=== PATIENT | female | born 1965 | race Caucasian/White ===

== ENCOUNTER 2022-12-13 18:55 | Emergency (ER) | payer MEDICARE, SELFPAY ==
[2022-12-13 19:11] VITALS: BP 134/78; PULSE 74; RESP 16; TEMP 37.3; O2SAT 99
--- NOTE | 2022-12-13 19:11 | ED.FALL ---
HPI - Fall General Chief Complaint: Fall Stated Complaint: right groin pain previous fall,hit head Time Seen by Provider: 12/13/22 19:11 Source: patient Mode of arrival: ambulatory Limitations: no limitations History of Present Illness HPI Narrative: Lizette is a 57-year-old female patient presenting to clinic today with complaints of right groin pain times 10 days. She reports that the groin pain is gradually getting worse. She has been taking ibuprofen to help alleviate the pain. States that she fell ago and possibly strained her right groin. She denies landing on her bottom-hit her at at the time but denies any neurological concerns at this time. Related Data Home Medications Medication Instructions Recorded Confirmed citalopram 20 mg tablet 20 mg PO DAILY 12/13/22 12/13/22 Allergies Allergy/AdvReac Type Severity Reaction Status Date / Time No Known Allergies Allergy Mild Verified 03/06/14 09:39 Review of Systems Review of Systems: Pertinent positives per HPI. Patient denies any fever, chills, rash, headache, visual changes, dizziness, cough, runny nose, sore throat, shortness of breath, chest pain, palpitations, nausea, vomiting, diarrhea, constipation, abdominal pain, or any urinary issues. PMFSH Comments At the time of my signature, I reviewed and agree with the nursing past medical, surgical, social, and family history. There is no relevant family history pertinent to the patient complaint. Exam Narrative: General: Well-developed, well nourished, in no apparent distress Head: Normocephalic, atraumatic Eyes: Pupils equally round and reactive to light bilaterally, EOM intact, sclera and conjunctive clear, no discharge, lids normal Ears: TMs intact and clear, ear canals clear, no drainage, grossly hearing normal. Nose: Nares patent, no discharge, no inflammation, no sinus tenderness. Mouth: Oropharynx without lesions or masses, good dentition, MMM. Tongue midline, even rise and fall of uvula Neck: Supple, trachea midline, no enlargement of anterior or posterior cervical nodes, no thyroid masses or goiter palpable. Cardio: Regular rate and rhythm, s1 and s2 normal, no murmur appreciated. Resp: Clear to auscultation bilaterally anteriorly and posteriorly, no rhonchi, rales, wheezing or rubs Musculoskeletal: No deformity,tender to palpation over the right groin, nontender to palpation over the pelvis or the right hip, grossly normal range of motion, pain is worse with going from a sitting to a standing position and as well as walking, muscle strength strong and equal, peripheral pulse strong, no edema, no cyanosis, normal gait and station Neuro: Alert and oriented x4 with normal speech, no focal deficits, cranial nerves I through XII intact, muscle strength 5 out of 5, sensation intact bilaterally, negative Romberg test Course Course Emergency Course: Portions of this record may have been created with voice recognition software. Level of Care: Express Care Visit Vital Signs Vital signs: Vital signs reviewed MDM - Fall MDM Narrative Medical decision making narrative: At the time of visit patient is resting comfortably on the exam table. I suspect patient has a right groin strain. Supportive measures were discussed and patient voiced understanding the discharge instructions. Will send in prescription for naproxen. At the patient follow-up with her PCP in 1 week if symptoms persist for further evaluation Differential Diagnosis Differential diagnosis: Likely other (Groin strain, hip fracture, pelvic fracture, and inguinal hernia) Discharge Plan Discharge Clinical Impression: Strain of muscle of right groin region Patient Disposition: Home, Self-Care Condition: Stable Instructions: Antibiotic Form, Groin Strain (ED) Additional Instructions: I suspect you have a right groin muscle strain Rest, may apply heat to the affected area Try stretching groin muscle 2-3 times da
== END 2022-12-13 19:26 | disposition home or self-care (01) ==
PROVIDERS: Emergency Provider Nurse Practitioner Family; PCP Family Medicine
DX: S39.011A Strain of muscle, fascia and tendon of abdomen, initial encounter (principal); Z79.899 Other long term (current) drug therapy; X58.XXXA Exposure to other specified factors, initial encounter
CPT/HCPCS: 99213; G0463

== ENCOUNTER 2023-02-07 18:44 | Inpatient (IN) | payer MEDICARE, SELFPAY ==
[2023-02-07] VITALS (15 sets, daily range): BP systolic 144–175; BP diastolic 86–107; PULSE 80–93; RESP 13–26; TEMP 36.9–37.1; O2SAT 81–100; BMI 31.6
--- NOTE | ~2023-02-07 | CT_ITS ---
EXAMINATION: CT brain wo con DATE: 02/07/2023 20:17 INDICATION: altered mental status . TECHNIQUE: Computed tomography (CT) of the head was performed without intravenous contrast. The mA wa s adjusted according to patient size. Iterative reconstruction technique was employed. The dose-lengt h product was 1210.67 mGy-cm. COMPARISON: None. FINDINGS: Motion artifact which persisted in repeated imaging attempts. No acute intracranial hemorrhage or extra-axial fluid collection. No hydrocephalus, mass, or herniation. No acute ischemic infarct. Unremarkable dural venous sinus attenuation. No acute osseous abnormality. Aerated secretions in the sphenoid sinus, mild mucosal thickening in the ethmoid air cells and left m axillary sinus, the remaining aerated spaces are clear. IMPRESSION: Mildly motion limited examination. No acute intracranial process. Reviewed, dictated and finalized at location K. O GAMES STORYWRITER
--- NOTE | ~2023-02-07 | CT_ITS ---
EXAMINATION: CT abdomen pelvis wo con DATE: 02/07/2023 22:23 INDICATION: abdominal pain, elevated LFT TECHNIQUE: Computed tomography (CT) of the abdomen and pelvis was performed without intravenous contr ast. Automated exposure control and iterative reconstruction technique were employed. The dose-length product was 1325.96 mGy-cm. COMPARISON: None. FINDINGS: Lower thorax: Left basilar atelectasis/scar. Small focus of subsegmental dependent consolidation with discoid atelectasis in the right lung base. Pacing wires. Liver: Normal. Biliary/Gallbladder: Gallbladder is absent. No bile duct dilation. Pancreas: No mass or duct dilation. Spleen: Normal. Adrenals:No mass. Right adrenal calcification, possibly from old hematoma. Kidneys: Left inferior pole calculi measuring up to 9 mm. Renal pelvis and right inferior pole calcul i measuring up to 13 mm. Mild bilateral caliectasis, pelviectasis, and ureterectasis, without obstruc ting stone or mass detected. GI tract: No small or large bowel dilation. Appendix not confidently visualized. Large volume of colo jessica stool. Mesentery/Peritoneum: No ascites, mass, or free air. Retroperitoneum: No mass. Pelvis: Urinary bladder is decompressed by a Castro catheter. Gas within the bladder lumen. Absent rachele matthew. Soft Tissues: Soft tissues and body wall unremarkable. Bones: No acute osseous finding. IMPRESSION: Small focus of subsegmental right basilar consolidation may represent atelectasis, infection, or aspi ration. Bilateral nonobstructive nephrolithiasis. Mild bilateral hydronephrosis without obstructing stone or mass. Correlate with urinalysis and clinic al symptoms of cystitis/ascending infection. Large volume of colonic stool may reflect a degree of constipation in the appropriate clinical contex t. Reviewed, dictated and finalized at location K. AIN FITTER IMPRESSION: Small focus of subsegmental right basilar consolidation may represent atelectas is, infection, or aspiration. Bilateral nonobstructive nephrolithiasis. Mild bilateral hydronephrosis without obstructing stone or mass. Correlate with urinalysis and clinical symptoms of cystitis/ascending infection. Large volume of colonic stool may reflect a degree of constipation in the appro priate clinical context.
--- NOTE | ~2023-02-07 | XR_ITS ---
EXAMINATION: XR chest 1V Exam Date/Time: 02/07/2023 20:10 INSERT MOLDING OPERATOR HISTORY: overdose Comparison: 09/05/2012. RESULT: Lines, tubes, and devices: Left chest pacer with intact leads. Cholecystectomy clips. Lungs and pleura: Low volumes with crowding, otherwise clear. Cardiomediastinal silhouette: Stable. Other: No acute osseous or upper abdominal finding. IMPRESSION: No acute cardiopulmonary process. Reviewed, dictated and finalized at location K. RT MOLDING OPERATOR
--- NOTE | ~2023-02-07 | US_ITS ---
EXAMINATION: US abdomen limited DATE: 02/08/2023 10:48 INDICATION: Hepatitis. TECHNIQUE: Multiple grayscale and Doppler ultrasound images of the abdomen were obtained. COMPARISON: CT abdomen and pelvis 02/07/2023 FINDINGS: The visualized portions of the head and body of the pancreas are normal. There is diffuse h epatic steatosis. There is normal flow in main portal vein. The gallbladder is absent. The common ron t is normal and measures 4 mm. The left, middle, and right hepatic veins are patent. There is decreas ed phasicity of the hepatic vein waveforms. IMPRESSION: 1. Diffuse hepatic steatosis. 2. Decreased phasicity of the hepatic vein waveforms, which is nonspecific and may be seen with liver disease or heart disease. Reviewed, dictated and finalized at location A. RER LANDSCAPE
--- NOTE | 2023-02-07 19:12 | ECG_ITS ---
Measurements Intervals Lyman Rate: 87 P: 62 IN: 195 QRS: -53 QRSD: 106 T: 8 QT: 345 QTc: 416 Interpretive Statements SINUS RHYTHM LEFT ANTERIOR FASCICULAR BLOCK POOR R WAVE PROGRESSION, ANTERIOR LEADS BORDERLINE ST-T WAVE ABNORMALITY- DIFFUSE LEADS BASELINE ARTIFACT- I, II, III, AVR, AVL, AVF, V1-V6 ABNORMAL ECG NO PREVIOUS ECG AVAILABLE FOR COMPARISON Electronically Signed On 02-08-2023 6:16:41 TICKER INSTALLER by Ming Cole D.O.
[2023-02-07] MEDS: ONDANSETRON INJ 4 MG/2 ML VIAL IV PUSH (19:20)
[2023-02-07] MEDS: SODIUM CHLORIDE 0.9% IV 1,000 ML 999 ML IV CONT ×2 (19:20→20:41)
--- NOTE | 2023-02-07 19:27 | PC.NURSE ---
arm board applied to RIGHT arm @1926 because pt is unable to keep arm straight. maggie domínguez O2 monitor applied for an accurate spO2 sat.
[2023-02-07 19:51] LABS: Basophils Absolute Auto 0.1 K/mm3 (0.0-0.1); Basophils Percent Auto 0.3 % (0.2-1.2); Eosinophils Absolute Auto 0.1 K/mm3 (0-0.3); Eosinophils Percent Auto 0.7 % (0-4.4); Hematocrit 43.9 % (37.0-47.0); Hemoglobin 15.6 g/dL (12.0-15.0); Immature Granulocyte Absolute 0.29 K/mm3 (0.00-0.031); Immature Granulocyte Percent A 1.5 % (0-0.5); Lymphocytes Absolute Auto 0.99 K/mm3 (0.9-3.2); Lymphocytes Percent Auto 5.1 % (18.3-44.2); Mean Corpuscular HGB Conc 35.5 g/dl (32-36); Mean Corpuscular Hemoglobin 32.2 pg (26-34); Mean Corpuscular Volume 90.5 fl (80-100); Mean Platelet Volume 11.5 fl (7.4-10.4); Monocytes Absolute Auto 0.9 K/mm3 (0.1-0.6); Monocytes Percent Auto 4.7 % (2.6-8.5); Neutrophils Absolute Auto 16.9 K/mm3 (1.3-6.7); Neutrophils Percent Auto 87.7 % (45.5-73.1); Nucleated Red Blood Cells Perc 0.1 % (0.0-0.2); Platelet Count Result 305 k/mm3 (150-375); Red Blood Count 4.85 M/mm3 (4.2-5.4); Red Cell Distribution Width 13.8 % (11.5-14.5); White Blood Count 19.3 K/mm3 (4.5-10.0)
[2023-02-07 19:58] LABS: Partial Thromboplastin Time 24.8 SECONDS (22.3-36.8)
[2023-02-07 20:03] LABS: Acetaminophen < 10 ug/mL (10-30); Ethanol < 10 mg/dL (<10); Salicylate < 1.0 mg/dL (2-20)
[2023-02-07 20:04] LABS: Lactic Acid Reflex 2.9 mmol/L (0.7-2.0)
[2023-02-07 20:05] LABS: INR 1.4; Prothrombin Time 18.3 Seconds (11.1-14.7)
--- NOTE | 2023-02-07 20:08 | ED.GENADULT ---
HPI - General Adult General Chief complaint: Overdose Stated complaint: OVERDOSE, AMS, LETHARGIC Time Seen by Provider: 02/07/23 19:03 History of Present Illness HPI narrative: Is a 7-year-old female who presents to emergency department with chief complaint of overdose. Per the patient's family she was found sleeping with some vomit nearby her with a bottle that was filled on the ien there were 3 tablets left in the bottle is unsure whether the patient was trying to harm herself or accidentally took too much. The patient is not able to provide history but will open her eyes to stimuli Related Data Home Medications Medication Instructions Recorded Confirmed citalopram 20 mg tablet 20 mg PO DAILY 12/13/22 02/07/23 hydrochlorothiazide 12.5 mg tablet 12.5 mg PO DAILY 02/07/23 02/07/23 zolpidem 5 mg tablet 5 mg PO HS PRN Insomnia 02/07/23 02/07/23 Allergies Allergy/AdvReac Type Severity Reaction Status Date / Time No Known Allergies Allergy Mild Verified 03/06/14 09:39 Review of Systems Review of Systems: A 10 system review of systems was completed on the patient and is negative except for what is stated in the HPI. Nursing and ancillary documentation was reviewed. [facility] Past Medical History Medical History (Updated 02/08/23 @ 01:10 by Carlye Olson DO) Anxiety Essential hypertension Insomnia POTS (postural orthostatic tachycardia syndrome) Surgical History Surgical History (Updated 02/07/23 @ 23:34 by Carley Olson DO) History of total hysterectomy with bilateral salpingo-oophorectomy (BSO) Status post biventricular cardiac pacemaker insertion Family History Family History Other Unknown family medical history Social History Social History (Updated 02/07/23 @ 23:31 by Carley Olson DO) Social History: The patient lives with her . Her is not at bedside as he suffers from social anxiety disorder. The patient has a distant history of prescription opiate abuse over 20 years ago (before 1999). She is a lifelong nonsmoker and does not drink alcohol. (social history provided by the patient's son, Abdifatah) Code status: Full code Surrogate decision maker: Smoking status: Unknown if ever smoked Alcohol intake: former Substance use: former Spiritual care concerns: No Course Vital Signs Vital signs: Vital Signs Pulse Rate 87 02/07/23 18:41 Respiratory Rate 20 02/07/23 18:41 Blood Pressure 175/98 H 02/07/23 18:41 Pulse Oximetry 100 02/07/23 18:41 Oxygen Delivery Room Air 02/07/23 18:41 Temperature 37.2 C 02/08/23 06:00 Pulse Rate 73 02/08/23 06:00 Respiratory Rate 18 02/08/23 06:00 Blood Pressure 107/81 02/08/23 06:00 Pulse Oximetry 94 02/08/23 06:00 Oxygen Delivery High Flow Nasal Cannula 02/08/23 04:00 Oxygen Flow Rate 3 02/08/23 04:00 Medical Decision Making Vital Signs Vital Signs: Vital Signs Pulse Rate 87 02/07/23 18:41 Respiratory Rate 20 02/07/23 18:41 Blood Pressure 175/98 H 02/07/23 18:41 Pulse Oximetry 100 02/07/23 18:41 Oxygen Delivery Room Air 02/07/23 18:41 Temperature 37.2 C 02/08/23 06:00 Pulse Rate 73 02/08/23 06:00 Respiratory Rate 18 02/08/23 06:00 Blood Pressure 107/81 02/08/23 06:00 Pulse Oximetry 94 02/08/23 06:00 Oxygen Delivery High Flow Nasal Cannula 02/08/23 04:00 Oxygen Flow Rate 3 02/08/23 04:00 Lab Data 02/08/23 06:31 02/07/23 19:36 Labs: Lab Results 02/07/23 02/07/23 02/07/23 Range/Units 19:36 19:36 19:36 WBC 19.3 H (4.5-10.0) K/mm3 RBC 4.85 (4.2-5.4) M/mm3 Hgb 15.6 H (12.0-15.0) g/dL Hct 43.9 (37.0-47.0) % MCV 90.5 (80-100) fl MCH 32.2 (26-34) pg MCHC 35.5 (32-36) g/dl RDW 13.8 (11.5-14.5) % Plt Count 305 (150-375) k/mm3 MPV 11.5 H (7.4-10.4) fl Laine
[2023-02-07 20:10] LABS: Appearance Urine Cloudy (Clear); Bacteria Urine None Seen /hpf; Bilirubin Urine Negative (Negative); Blood Urine 3+ (Negative); Color Urine Dark Yellow (Yellow); Glucose Urine UA Negative (Negative); Ketones Urine Negative (Negative); Leukocyte Esterase Ur Negative LEU/UL (Negative); Nitrate Urine Negative (Negative); Non Pathogenic Casts 0-2; Protein Urine 1+ mg/dL (Negative); Specific Grav Ur 1.016 (1.001-1.035); Squamous Epithelial Cell Urine None seen /hpf (Few); WBC Urine 0-5 /hpf; pH Urine 5.5 (5.0-9.0)
[2023-02-07 20:16] LABS: Albumin Level 4.2 g/dL (3.5-5.1); Alkaline Phosphatase 280 U/L (38-126); Anion Gap 17 mmol/L (8-16); Bilirubin,Total 1.7 mg/dL (0.2-1.3); Blood Urea Nitrogen 76 mg/dL (7-17); Carbon Dioxide 23 mmol/L (22-30); Chloride 101 mmol/L (98-107); Estimated CRCL calculation 21 ml/min; Estimated Glomerular Filt Rate 17; Glucose 136 mg/dL (65-110); Magnesium 2.2 mg/dL (1.6-2.3); Phosphorus 2.5 mg/dL (2.5-4.5); Potassium 3.2 mmol/L (3.4-5.0); Sodium 141 mmol/L (137-145)
[2023-02-07 20:17] LABS: Add Urine Microscopic? YES
[2023-02-07 20:20] LABS: Creatine Kinase 2280 U/L (30-135)
--- NOTE | 2023-02-07 20:21 | PC.NURSE ---
pt recieved 1L of NS in ems.
[2023-02-07 20:22] LABS: Amphetamine Screen Urine Negative (Negative); Barbiturate Screen Urine Negative (Negative); Benzodiazepines Screen Urine Negative (Negative); Cannabinoid Screen Urine Negative (Negative); Cocaine Screen Urine Negative (Negative); Methadone Screen Urine Negative (Negative); Opiate Screen Urine Negative (Negative); Phencyclidine Screen Urine Negative (Negative)
[2023-02-07 20:31] LABS: Alanine Aminotransferase 3412 U/L (6-35); Aspartate Amino Transferase 2276 U/L (14-36)
[2023-02-07 20:32] LABS: Thyroid Stimulating Hormone 0.854 uIU/mL (0.465-4.680)
--- NOTE | 2023-02-07 20:33 | PC.NURSE ---
notified poison control and they recommend admission, iv fluids, and trending the CPK every 6-8 hours. notified.
--- NOTE | 2023-02-07 20:44 | PM.IMHP ---
H&P: HPI History of Present Illness Date/Time: 02/07/23 20:44 Chief Complaint: Suspected overdose Narrative: 57-year-old female with a past medical history of obesity, anxiety postural orthostatic tachycardic syndrome status post pacemaker placement, chronic lower extremity edema and hypertension who presented to the ER from home after being found in bed with an almost empty bottle of Ambien. Information was obtained from the patient's son was at bedside, the patient's [id number] over the phone and the patient's over the phone. The patient has definite last known normal was on the evening of the . The patient's son is uncertain if the patient had actually got up and was up or talking to her through the day. But he reports that the patient has been having significant difficulty with insomnia and anxiety. Patient was started on Ambien in December. The patient had taken a couple doses of Ambien and had noticed that she was doing sleep behaviors such as sleep eating and walking. The patient had verbalized to the [id number] that she was concerned that if she took the Ambien that she to sleep she may inadvertently into taking extra doses because she did not realize that she had taken the previous dose. Patient had never verbalized intention to hurt herself to the family members. And today the patient was found in her bed at home with a bottle of Ambien. She was found with emesis around her mouth and she had been incontinent of bladder. The patient was responsive only to painful stimuli. She had a prescription of Ambien 5 mg filled on the . There were only 3 tablets left in the bottle. It sounds like the patient was not taking the Ambien on every day basis because of her concern for her unintentional sleep behaviors. It is uncertain how many pills of Ambien the patient may taken. Patient will open her eyes to noxious stimuli. She does moan and moves about but does not localize the pain. She occasionally will open her eyes to her name. The patient had vomited in the field it was assumed that this was due to the drug ingestion. But on exam patient seemed to have some abdominal tenderness. Subsequently patient was sent for stat CT of the abdomen and pelvis. CT demonstrated right lower lobe pneumonia and bilateral hydronephrosis with decompressed bladder due to Castro. Patient did have 2 L urinary retention in the ER with relief after Castro catheter placement. Hydronephrosis likely due to this. However the patient's bladder was already decompressed at the time of my evaluation. No other evidence of acute abdominal process. So emesis likely was due to drug ingestion. The family does provide history but they also on not the best historians. EMS documentation was not available for my review. The patient had never been evaluated at this facility before. External medication history was reviewed from electronic sources. Review of Systems Review of Systems: ROS unobtainable: Yes unobtainable due to mental status PMFSH Past Medical History Medical History (Updated 02/08/23 @ 01:10 by Carley Olson DO) Anxiety Essential hypertension Insomnia POTS (postural orthostatic tachycardia syndrome) Surgical History Surgical History (Updated 02/07/23 @ 23:34 by Carley Olson DO) History of total hysterectomy with bilateral salpingo-oophorectomy (BSO) Status post biventricular cardiac pacemaker insertion Family History Family History (Updated 02/07/23 @ 23:29 by Carley Olson DO) Other Unknown family medical history Social History Social History (Updated 02/07/23 @ 23:31 by Carley Olson DO) Social History: The patient lives with her . Her is not at bedside as he suffers from social anxiety disorder. The patient has a distant history of prescription opiate abuse over 20 years ago (before 1999). She is a lifelong nonsmoker and does not drink alcohol. (social history provided by
[2023-02-07 21:29] LABS: Alveolar/Arterial O2 Gradient 226.9 mmHg; Base Excess ABG -2.7 mEq/l (+/-2.0); Fractional Inspired Oxygen 60 %; HCO3 ABG 20.5 mEq/l (22.0-26.0); Oxygen Content ABG 18.7 %vol (16.0-22.0); Oxygen Saturation ABG 99.2 % (95.0-100.0); Oxyhemoglobin 97.6 % THb (90.0-100.0); PCO2 ABG 31.2 mmHg (35.0-45.0); PO2 ABG 166.6 mmHg (80.0-100.0); PO2 FiO2 Ratio Arterial Blood 2.78 %; Total Hemoglobin 13.4 g/dL (12.0-18.0); pH ABG 7.435 (7.350-7.450)
[2023-02-07 21:31] LABS: Device NON-REBREATHER MASK; Modified Allen's Test Pass; Site Drawn RIGHT FEMORAL
[2023-02-07 21:33] LABS: Influenza A QL RT-PCR Negative (Negative); Influenza B QL RT-PCR Negative (Negative); RSV RNA, RT-PCR Negative (Negative); SARS-CoV-2 RNA PCR Negative (Negative)
--- NOTE | 2023-02-07 22:06 | PC.NURSE ---
unbable to obtain blood cultures. Phlebotomy notified for assistance @[id number]
[2023-02-07] MEDS: SODIUM CHLORIDE 0.9% IV 1,000 ML 150 ML IV CONT (22:23)
[2023-02-07] MEDS: KCL 20 MEQ/SW 100 ML 100 ML 50 MEQ IVPB (22:23)
[2023-02-07 22:45] LABS: Reflex Lactic Acid Yes or No Add Lactic
--- NOTE | 2023-02-07 23:20 | ADMGEN ---
This patient, Lizette Quintero, was admitted to Intensive Care Unit-5. Patient/family oriented to hospital policies and general routines including ID bracelet, bed and alarms, visiting hours, pain management, procedures, bathroom and other care routines, personal items, smoking policy, room service/diet, and visiting hours. Information on how to activate the Rapid Response Team has been discussed. Patient/Family are encouraged to report perceived risks to care and to ask questions if they do not understand what they are told or what they should do.
[2023-02-07] MEDS: DEXTROSE 5% IVPB (23:42)
[2023-02-07] MEDS: WATER IVPB (23:42)
[2023-02-07] MEDS: ACETYLCYSTEINE IVPB (23:42)
[2023-02-08] VITALS (14 sets, daily range): BP systolic 107–175; BP diastolic 70–110; PULSE 72–87; RESP 15–22; TEMP 37.2–37.7; O2SAT 90–98
[2023-02-08 00:47] LABS: Ammonia < 9 umol/L (9-30)
[2023-02-08 00:48] LABS: Lactic Acid 1.3 mmol/L (0.7-2.0)
[2023-02-08 00:57] LABS: Acetaminophen < 10 ug/mL (10-30)
[2023-02-08 01:08] LABS: Creatine Kinase 1473 U/L (30-135)
[2023-02-08 01:28] LABS: Alanine Aminotransferase 2242 U/L (6-35); Albumin Level 1.7 g/dL (3.5-5.1); Alkaline Phosphatase 71 U/L (38-126); Aspartate Amino Transferase 1305 U/L (14-36); Bilirubin,Total 1.2 mg/dL (0.2-1.3)
[2023-02-08] MEDS: AMPICILLIN SULB 3 GM/NS 100 ML 3 GM/100 ML VIAL IVPB ×2 (01:30→14:50)
[2023-02-08 06:37] LABS: Basophils Percent Auto 0.3 % (0.2-1.2); Hematocrit 41.4 % (37.0-47.0); Hemoglobin 12.8 g/dL (12.0-15.0); Immature Granulocyte Absolute 0.17 K/mm3 (0.00-0.031); Immature Granulocyte Percent A 1.2 % (0-0.5); Lymphocytes Absolute Auto 1.28 K/mm3 (0.9-3.2); Lymphocytes Percent Auto 8.7 % (18.3-44.2); Mean Corpuscular HGB Conc 30.9 g/dl (32-36); Mean Corpuscular Hemoglobin 29.4 pg (26-34); Mean Corpuscular Volume 95.2 fl (80-100); Mean Platelet Volume 11.1 fl (7.4-10.4); Monocytes Percent Auto 6.8 % (2.6-8.5); Neutrophils Absolute Auto 12.2 K/mm3 (1.3-6.7); Platelet Count Result 217 k/mm3 (150-375); Red Blood Count 4.35 M/mm3 (4.2-5.4); Red Cell Distribution Width 12.8 % (11.5-14.5); White Blood Count 14.7 K/mm3 (4.5-10.0)
[2023-02-08] MEDS: BISACODYL 10 MG SUPPOSITORY RECTAL (07:20)
[2023-02-08 07:47] LABS: Albumin Level 1.7 g/dL (3.5-5.1); Alkaline Phosphatase 166 U/L (38-126); Anion Gap 13 mmol/L (8-16); Blood Urea Nitrogen 59 mg/dL (7-17); Calcium 7.7 mg/dL (8.4-10.2); Carbon Dioxide 21 mmol/L (22-30); Chloride 108 mmol/L (98-107); Creatine Kinase 1597 U/L (30-135); Estimated CRCL calculation 33 ml/min; Estimated Glomerular Filt Rate 31; Glucose 112 mg/dL (65-110); Potassium 3.4 mmol/L (3.4-5.0); Sodium 142 mmol/L (137-145)
[2023-02-08 07:48] LABS: Alanine Aminotransferase 2124 U/L (6-35); Aspartate Amino Transferase 1154 U/L (14-36)
[2023-02-08] MEDS: PANTOPRAZOLE SODIUM IV 40 MG VIAL IV PUSH (08:29)
[2023-02-08] MEDS: HEPARIN SODIUM 5,000 UNITS/ML VIAL 5000 UNITS SUB-Q ×2 (08:29→21:58)
--- NOTE | 2023-02-08 09:19 | WPDCNINT ---
Assessment and Plan Assessment and plan (1) Encephalopathy: Code(s): G93.40 - Encephalopathy, unspecified Status: Acute Assessment and Plan: Acute toxic encephalopathy likely secondary to Ambien TSH and ammonia normal Head CT unremarkable Patient now AO x3 Monitor (2) Urinary retention: Code(s): R33.9 - Retention of urine, unspecified Status: Acute Assessment and Plan: Likely secondary to drug abuse and overdose Patient does have mild hydronephrosis which could be secondary to urinary retention currently patient has Castro Monitor (3) Acute kidney injury: Code(s): N17.9 - Acute kidney failure, unspecified Status: Acute Assessment and Plan: Likely multifactorial with combination of prerenal, rhabdomyolysis, and urinary retention Improving with IV fluids his creatinine is down to 1.7 Continue to monitor urine output electrolytes and creatinine (4) Transaminitis: Code(s): R74.01 - Elevation of levels of liver transaminase levels Status: Acute Assessment and Plan: Patient has significantly elevated AST and ALT level. Although this can be explained but abdomen by lysis due to unclear history patient was started on and NAC infusion for potential acetaminophen toxicity. Her acetaminophen level was negligible. Will continue 16 hours protocol This morning patient denies taking [id number] Tylenol or Percocet or [place] Check hepatitis panel, check right upper quadrant ultrasound with Dopplers to rule out any portal venous thrombosis Denies any abdominal pain making the diagnosis less likely Monitor liver enzymes (5) Aspiration pneumonia: Code(s): J69.0 - Pneumonitis due to inhalation of food and vomit Status: Acute Assessment and Plan: Small focus of infiltrate in right base suggestive of possible aspiration Blood culture sent Patient is on Unasyn (6) Rhabdomyolysis: Qualifiers: Rhabdomyolysis type: non-traumatic Qualified Code(s): M62.82 - Rhabdomyolysis Code(s): M62.82 - Rhabdomyolysis Status: Acute Assessment and Plan: Likely from laying on the floor for prolonged period of time Continue IV fluids Monitor CK level (7) Drug overdose: Qualifiers: Encounter type: initial encounter Injury intent: undetermined intent Qualified Code(s): T50.904A - Poisoning by unspecified drugs, medicaments and biological substances, undetermined, initial encounter Code(s): T50.901A - Poisoning by unspecified drugs, medicaments and biological substances, accidental (unintentional), initial encounter Status: Acute Assessment and Plan: Most likely Ambien overdose Mental status is improved History does not suggest any suicidal homicidal ideation or attempts Plan DVT prophylaxis -subQ hep Nutrition -start clear liquid diet and advance as tolerated Code Status - Full Code Transfer out ICU today Passenger Solicitor Consult Note Consult date: 02/08/23 Reason for consult: Altered mental status, drug overdose HPI: Lizette Quintero is a 57 year old female with a past medical history of obesity, anxiety, postural orthostatic tachycardic syndrome status post pacemaker placement, chronic lower extremity edema and hypertension who presented to the ER from home after being found in bed with an almost empty bottle of Ambien.? In the ER information was obtained from the patient's son was at bedside, the patient's [id number] over the phone and the patient's over the phone.? The patient has definite last known normal was on the evening of the .? The patient's son was uncertain if the patient had actually got up and was up or talking to her through the day.? But he reports that the patient has been having significant difficulty with insomnia and anxiety.? Patient was started on Ambien in December.? The patient had taken a couple doses of Ambien and had noticed that she was doing sleep be
[2023-02-08] MEDS: KCL 20 MEQ/0.45% NS 1,000 ML 125 ML IV CONT ×2 (09:36→17:55)
[2023-02-08 09:44] LABS: HAV RESULT Negative (Negative); Hepatitis B Core IgM Result Negative (Negative)
[2023-02-08 09:56] LABS: Hepatitis C Virus Antibody Negative (Negative)
[2023-02-08 10:09] LABS: Hepatitis B Surface Antigen Negative (Negative)
[2023-02-08] MEDS: polyethylene glycoL 3350 17 GM POWD.PACK PO (12:01)
--- NOTE | 2023-02-08 16:34 | PM.IMPN ---
Progress Note: A&P Assessment and Plan (1) Aspiration pneumonia: Code(s): J69.0 - Pneumonitis due to inhalation of food and vomit Status: Acute (2) Encephalopathy: Code(s): G93.40 - Encephalopathy, unspecified Status: Acute (3) Urinary retention: Code(s): R33.9 - Retention of urine, unspecified Status: Acute (4) High anion gap metabolic acidosis: Code(s): E87.29 - Other acidosis Status: Acute (5) Hypokalemia: Code(s): E87.6 - Hypokalemia Status: Acute (6) Acute kidney injury: Code(s): N17.9 - Acute kidney failure, unspecified Status: Acute (7) Transaminitis: Code(s): R74.01 - Elevation of levels of liver transaminase levels Status: Acute Plan Poison Control was contacted.?Altered mental status likely due to combination of both toxic and metabolic encephalopathy. Patient remains on aggressive IV fluid hydration due to post sepsis and rhabdomyolysis. Hypokalemia continue potassium supplementation. Patient has rhabdomyolysis likely due to what I suspect was a significant down time with sedation from Ambien. Will check repeat transaminases. Check cmp and mg every 8 hours. The patient has suspected overdose of Ambien but could have also overdose another toxins given patient's LFTs are markedly elevated acetaminophen toxicity is possible.?The patient's current Tylenol level is negative.?Patient has been started on N-acetylcysteine for potential Tylenol toxicity. Trend LFTs. Subjective Date/time seen: 02/08/23 16:34 Interval history: 57-year-old female with a past medical history of obesity, anxiety postural orthostatic tachycardic syndrome status post pacemaker placement, chronic lower extremity edema and hypertension who presented to the ER from home after being found in bed with an almost empty bottle of Ambien. Pt presently in icu for ambien overdose pt is a deep sleep vitals are stable being watched in icu liver function is high Pt is on N -acetylcysteine for potential Tylenol toxicity Continue current treatments, Poison control aware Continue to watch liver function and potassium levels Once pt is medically cleared crisis team to be consulted Review of Systems Review of Systems: Pt is more awake today Objective Data Vital Signs Vital Signs: Vital Signs - 24 hr 02/07/23 18:41 02/07/23 18:41 02/07/23 19:06 Temperature Pulse Rate 87 Respiratory Rate 20 20 Blood Pressure 175/98 H Pulse Oximetry 100 94 Oxygen Delivery Room Air Nasal Cannula Oxygen Flow Rate 2 02/07/23 19:10 02/07/23 19:11 02/07/23 19:15 Temperature Pulse Rate 93 89 92 Respiratory Rate 23 H 26 H Blood Pressure Pulse Oximetry 91 98 Oxygen Delivery Oxygen Flow Rate 02/07/23 19:41 02/07/23 19:54 02/07/23 19:56 Temperature 37.1 C 37.1 C Pulse Rate 91 83 80 Respiratory Rate 19 15 16 Blood Pressure 148/86 H Pulse Oximetry 96 100 Oxygen Delivery Oxygen Flow Rate 02/07/23 20:34 02/07/23 19:57 02/07/23 20:00 Temperature 37.1 C 36.9 C Pulse Rate 81 85 Respiratory Rate 13 16 Blood Pressure Pulse Oximetry 100 100 100 Oxygen Delivery Non-Rebreather Mask Oxygen Flow Rate 15 02/07/23 20:02 02/07/23 20:24 02/07/23 20:33 Temperature 37.1 C 36.9 C Pulse Rate 84 83 Respiratory Rate 16 21 H Blood Pressure 144/107 H Pulse Oximetry 81 L 100 Oxygen Delivery Oxygen Flow Rate 02/07/23 23:45 02/08/23 00:00 02/08/23 00:00 Temperature 37.2 C Pulse Rate 83 81 79 Respiratory Rate 20 20 Blood Pressure 144/107 H 131/110 H Pulse Oximetry 96 96 Oxygen Delivery High Flow Nasal Cannula Oxygen Flow Rate 2 02/08/23 01:10 02/08/23 02:00 02/08/23 04:00 Temperature 37.2 C 37.2 C Pulse Rate 82 87 74 Respiratory Rate 18 18 18 Blood Pressure 175/70 H 164/88 H Pulse Oximetry 97 97 97 Oxygen Delivery High Flow Nasal Cannula Oxygen Flow Rate 3 02/08/23
[2023-02-08 17:14] LABS: Alkaline Phosphatase 177 U/L (38-126); Anion Gap 11 mmol/L (8-16); Bilirubin,Total 1.1 mg/dL (0.2-1.3); Blood Urea Nitrogen 43 mg/dL (7-17); Calcium 7.7 mg/dL (8.4-10.2); Carbon Dioxide 24 mmol/L (22-30); Chloride 103 mmol/L (98-107); Estimated CRCL calculation 43 ml/min; Estimated Glomerular Filt Rate 42; Glucose 108 mg/dL (65-110); Potassium 2.9 mmol/L (3.4-5.0); Sodium 138 mmol/L (137-145)
[2023-02-08 17:30] LABS: Alanine Aminotransferase 1842 U/L (6-35); Aspartate Amino Transferase 794 U/L (14-36)
[2023-02-08] MEDS: POTASSIUM CHLORIDE INJ 40 MEQ in SODIUM CHLORIDE 0.9% IV 500 ML 130 MEQ IVPB (18:23)
[2023-02-09] VITALS (11 sets, daily range): BP systolic 132–151; BP diastolic 69–98; PULSE 70–77; RESP 14–21; TEMP 37–37.7; O2SAT 90–98
[2023-02-09] MEDS: AMPICILLIN SULB 3 GM/NS 100 ML 3 GM/100 ML VIAL IVPB ×2 (01:23→13:50)
[2023-02-09] MEDS: KCL 20 MEQ/0.45% NS 1,000 ML 125 ML IV CONT ×3 (01:40→17:58)
[2023-02-09 05:02] LABS: Albumin Level 2.5 g/dL (3.5-5.1); Alkaline Phosphatase 156 U/L (38-126); Anion Gap 8 mmol/L (8-16); Aspartate Amino Transferase 594 U/L (14-36); Blood Urea Nitrogen 31 mg/dL (7-17); Calcium 7.4 mg/dL (8.4-10.2); Carbon Dioxide 19 mmol/L (22-30); Chloride 105 mmol/L (98-107); Creatine Kinase 479 U/L (30-135); Estimated CRCL calculation 61 ml/min; Estimated Glomerular Filt Rate > 60; Glucose 96 mg/dL (65-110); Potassium 3.3 mmol/L (3.4-5.0); Sodium 132 mmol/L (137-145)
[2023-02-09 05:09] LABS: Alanine Aminotransferase 1471 U/L (6-35)
[2023-02-09 06:18] LABS: Hematocrit 35.3 % (37.0-47.0); Hemoglobin 11.3 g/dL (12.0-15.0); Mean Corpuscular Hemoglobin 28.1 pg (26-34); Mean Corpuscular Volume 87.8 fl (80-100); Mean Platelet Volume 10.7 fl (7.4-10.4); Platelet Count Result 207 k/mm3 (150-375); Red Blood Count 4.02 M/mm3 (4.2-5.4); Red Cell Distribution Width 12.9 % (11.5-14.5); White Blood Count 14.5 K/mm3 (4.5-10.0)
[2023-02-09] MEDS: MAGNESIUM SULF 2 GM/WATER 50ML 2 GM/50 ML BAG IVPB (07:26)
[2023-02-09] MEDS: PANTOPRAZOLE SODIUM IV 40 MG VIAL IV PUSH (09:57)
[2023-02-09] MEDS: HEPARIN SODIUM 5,000 UNITS/ML VIAL 5000 UNITS SUB-Q ×2 (09:57→20:54)
--- NOTE | 2023-02-09 11:29 | PC.NURSE ---
Dr. Coulter from poison control called for update; labs and vitals reviewed; no further recommendations at this time but they will continue to follow for now and call back later for updates
[2023-02-09] MEDS: POTASSIUM CHLORIDE 20 MEQ ER TABLET 40 MEQ PO (12:35)
[2023-02-09 12:49] LABS: Albumin Level 2.8 g/dL (3.5-5.1); Alkaline Phosphatase 169 U/L (38-126); Anion Gap 7 mmol/L (8-16); Aspartate Amino Transferase 451 U/L (14-36); Bilirubin,Total 1.1 mg/dL (0.2-1.3); Blood Urea Nitrogen 24 mg/dL (7-17); Calcium 7.3 mg/dL (8.4-10.2); Carbon Dioxide 24 mmol/L (22-30); Chloride 101 mmol/L (98-107); Estimated CRCL calculation 68 ml/min; Estimated Glomerular Filt Rate > 60; Glucose 110 mg/dL (65-110); Magnesium 1.6 mg/dL (1.6-2.3); Potassium 3.1 mmol/L (3.4-5.0); Sodium 132 mmol/L (137-145)
[2023-02-09 13:26] LABS: Alanine Aminotransferase 1292 U/L (6-35)
--- NOTE | 2023-02-09 15:52 | PM.IMPN ---
Progress Note: A&P Assessment and Plan (1) Aspiration pneumonia: Code(s): J69.0 - Pneumonitis due to inhalation of food and vomit Status: Acute (2) Encephalopathy: Code(s): G93.40 - Encephalopathy, unspecified Status: Acute (3) Urinary retention: Code(s): R33.9 - Retention of urine, unspecified Status: Acute (4) High anion gap metabolic acidosis: Code(s): E87.29 - Other acidosis Status: Acute (5) Hypokalemia: Code(s): E87.6 - Hypokalemia Status: Acute (6) Acute kidney injury: Code(s): N17.9 - Acute kidney failure, unspecified Status: Acute (7) Transaminitis: Code(s): R74.01 - Elevation of levels of liver transaminase levels Status: Acute Plan Poison Control was contacted.?Altered mental status likely due to combination of both toxic and metabolic encephalopathy. Patient remains on aggressive IV fluid hydration due to post sepsis and rhabdomyolysis. Hypokalemia continue potassium supplementation. Patient has rhabdomyolysis likely due to what I suspect was a significant down time with sedation from Ambien. Will check repeat transaminases. Check cmp and mg every 8 hours. The patient has suspected overdose of Ambien but could have also overdose another toxins given patient's LFTs are markedly elevated acetaminophen toxicity is possible.?The patient's current Tylenol level is negative.?Patient has been started on N-acetylcysteine for potential Tylenol toxicity. Trend LFTs. Aspiration pneumonia pt is on IV unasyn follow BC Subjective Date/time seen: 02/09/23 15:52 Interval history: 57-year-old female with a past medical history of obesity, anxiety postural orthostatic tachycardic syndrome status post pacemaker placement, chronic lower extremity edema and hypertension who presented to the ER from home after being found in bed with an almost empty bottle of Ambien. Pt presently in icu for ambien overdose pt is a deep sleep vitals are stable being watched in icu liver function is high Pt is on N -acetylcysteine for potential Tylenol toxicity Continue current treatments, Poison control aware Continue to watch liver function and potassium levels Once pt is medically cleared crisis team to be consulted Exam Const: Other: Acutely ill-appearing, obese, appears much older than stated age Neck: Other: No JVD, no masses Resp: Other: Mild tachypnea, no accessory muscle use, anterior exam only performed, decreased breath sounds Cardio: Other: Regular rate, regular rhythm, 1+ bilateral radial pedal pulses, no murmurs GI: Other: Distended, tender in the epigastric region, possible hepatomegaly, normoactive bowel sounds : Other: Castro catheter in place with dark turbid baylee urine, patient had almost immediate return of 2 L of urine Back/Spine/Pelvis: Other: Patient has a bruise to the left back, palpation pelvis Normal stable Objective Data Vital Signs Vital Signs: Vital Signs - 24 hr 02/08/23 16:00 02/08/23 16:00 02/08/23 20:00 Temperature 37.5 C Pulse Rate 73 73 72 Respiratory Rate 15 15 18 Blood Pressure 144/74 H Pulse Oximetry 90 90 98 Oxygen Delivery Nasal Cannula Nasal Cannula Oxygen Flow Rate 3 2 02/08/23 20:00 02/08/23 21:57 02/09/23 00:00 Temperature 37.7 C H 37.7 C H Pulse Rate 72 72 77 Respiratory Rate 18 19 Blood Pressure 140/76 149/69 H Pulse Oximetry 96 95 Oxygen Delivery Oxygen Flow Rate 02/09/23 00:00 02/09/23 00:00 02/09/23 04:00 Temperature 37.4 C Pulse Rate 72 72 73 Respiratory Rate 14 18 Blood Pressure 151/98 H Pulse Oximetry 97 94 Oxygen Delivery Nasal Cannula Oxygen Flow Rate 2 02/09/23 04:00 02/09/23 04:00 02/09/23 08:00 Temperature 37.3 C Pulse Rate 75 73 73 Respiratory Rate 18 18 Blood Pressure 134/81 Pulse Oximetry 98 96 Oxygen Delivery Nasal Cannula Oxygen Flow Rate 2
[2023-02-09 19:05] LABS: Albumin Level 2.9 g/dL (3.5-5.1); Alkaline Phosphatase 152 U/L (38-126); Anion Gap 8 mmol/L (8-16); Aspartate Amino Transferase 377 U/L (14-36); Bilirubin,Total 1.2 mg/dL (0.2-1.3); Blood Urea Nitrogen 21 mg/dL (7-17); Calcium 7.2 mg/dL (8.4-10.2); Carbon Dioxide 22 mmol/L (22-30); Chloride 103 mmol/L (98-107); Estimated CRCL calculation 68 ml/min; Estimated Glomerular Filt Rate > 60; Glucose 104 mg/dL (65-110); Magnesium 1.5 mg/dL (1.6-2.3); Potassium 3.7 mmol/L (3.4-5.0); Sodium 133 mmol/L (137-145)
[2023-02-09 19:33] LABS: Alanine Aminotransferase 1226 U/L (6-35)
[2023-02-09] MEDS: MAGNESIUM OXIDE 200 MG TABLET PO (20:54)
[2023-02-10] VITALS (8 sets, daily range): BP systolic 132–150; BP diastolic 68–83; PULSE 72–81; RESP 19–21; TEMP 36.6–37.1; O2SAT 93–98
[2023-02-10 01:12] LABS: Albumin Level 2.6 g/dL (3.5-5.1); Alkaline Phosphatase 145 U/L (38-126); Anion Gap 7 mmol/L (8-16); Aspartate Amino Transferase 262 U/L (14-36); Blood Urea Nitrogen 18 mg/dL (7-17); Calcium 7.3 mg/dL (8.4-10.2); Carbon Dioxide 23 mmol/L (22-30); Chloride 103 mmol/L (98-107); Estimated CRCL calculation 77 ml/min; Estimated Glomerular Filt Rate > 60; Glucose 106 mg/dL (65-110); Magnesium 1.4 mg/dL (1.6-2.3); Potassium 3.3 mmol/L (3.4-5.0); Sodium 133 mmol/L (137-145)
[2023-02-10] MEDS: AMPICILLIN SULB 3 GM/NS 100 ML 3 GM/100 ML VIAL IVPB (01:21)
[2023-02-10] MEDS: DOCUSATE SODIUM LIQ 100 MG/10 ML UDC PO ×3 (01:22→20:15)
[2023-02-10 02:34] LABS: Alanine Aminotransferase 985 U/L (6-35)
[2023-02-10] MEDS: MAGNESIUM SULF 2 GM/WATER 50ML 2 GM/50 ML BAG IVPB (02:35)
[2023-02-10] MEDS: MAGNESIUM OXIDE 400 MG TABLET 800 MG PO (02:36)
[2023-02-10] MEDS: KCL 20 MEQ/0.45% NS 1,000 ML 125 ML IV CONT ×2 (02:36→15:43)
[2023-02-10] MEDS: POTASSIUM CHLORIDE INJ 40 MEQ in SODIUM CHLORIDE 0.9% IV 500 ML 130 MEQ IVPB (02:36)
[2023-02-10 05:04] LABS: Albumin Level 2.7 g/dL (3.5-5.1); Alkaline Phosphatase 156 U/L (38-126); Anion Gap 7 mmol/L (8-16); Aspartate Amino Transferase 225 U/L (14-36); Bilirubin,Total 1.1 mg/dL (0.2-1.3); Blood Urea Nitrogen 16 mg/dL (7-17); Calcium 7.5 mg/dL (8.4-10.2); Carbon Dioxide 24 mmol/L (22-30); Chloride 103 mmol/L (98-107); Creatine Kinase 194 U/L (30-135); Estimated CRCL calculation 68 ml/min; Estimated Glomerular Filt Rate > 60; Glucose 120 mg/dL (65-110); Magnesium 1.9 mg/dL (1.6-2.3); Potassium 3.3 mmol/L (3.4-5.0); Sodium 134 mmol/L (137-145)
[2023-02-10 05:11] LABS: Alanine Aminotransferase 934 U/L (6-35)
[2023-02-10] MEDS: PANTOPRAZOLE SODIUM IV 40 MG VIAL IV PUSH (08:27)
[2023-02-10] MEDS: MAGNESIUM OXIDE 200 MG TABLET PO ×2 (08:27→20:15)
[2023-02-10] MEDS: polyethylene glycoL 3350 17 GM POWD.PACK PO (08:28)
[2023-02-10 09:04] LABS: Hematocrit 37.1 % (37.0-47.0); Hemoglobin 11.8 g/dL (12.0-15.0); Mean Corpuscular HGB Conc 31.8 g/dl (32-36); Mean Corpuscular Hemoglobin 28.2 pg (26-34); Mean Corpuscular Volume 88.8 fl (80-100); Mean Platelet Volume 10.3 fl (7.4-10.4); Platelet Count Result 205 k/mm3 (150-375); Red Blood Count 4.18 M/mm3 (4.2-5.4); Red Cell Distribution Width 13.1 % (11.5-14.5); White Blood Count 11.7 K/mm3 (4.5-10.0)
[2023-02-10 09:26] LABS: Albumin Level 2.9 g/dL (3.5-5.1); Alkaline Phosphatase 155 U/L (38-126); Anion Gap 8 mmol/L (8-16); Aspartate Amino Transferase 199 U/L (14-36); Blood Urea Nitrogen 14 mg/dL (7-17); Calcium 7.6 mg/dL (8.4-10.2); Carbon Dioxide 23 mmol/L (22-30); Chloride 104 mmol/L (98-107); Estimated CRCL calculation 77 ml/min; Estimated Glomerular Filt Rate > 60; Glucose 171 mg/dL (65-110); Magnesium 1.7 mg/dL (1.6-2.3); Potassium 3.5 mmol/L (3.4-5.0); Sodium 135 mmol/L (137-145)
[2023-02-10 09:47] LABS: Alanine Aminotransferase 897 U/L (6-35)
[2023-02-10] MEDS: AMOXICILLIN/CLAVULANATE K 875-125 MG TAB 1 TABLET PO ×2 (11:14→20:15)
--- NOTE | 2023-02-10 12:04 | PM.IMPN ---
Progress Note: A&P Assessment and Plan (1) Aspiration pneumonia: Code(s): J69.0 - Pneumonitis due to inhalation of food and vomit Status: Acute (2) Encephalopathy: Code(s): G93.40 - Encephalopathy, unspecified Status: Acute (3) Urinary retention: Code(s): R33.9 - Retention of urine, unspecified Status: Acute (4) High anion gap metabolic acidosis: Code(s): E87.29 - Other acidosis Status: Acute (5) Hypokalemia: Code(s): E87.6 - Hypokalemia Status: Acute (6) Acute kidney injury: Code(s): N17.9 - Acute kidney failure, unspecified Status: Acute (7) Transaminitis: Code(s): R74.01 - Elevation of levels of liver transaminase levels Status: Acute Plan Poison Control was contacted.?Altered mental status likely due to combination of both toxic and metabolic encephalopathy. Patient remains on aggressive IV fluid hydration due to post sepsis and rhabdomyolysis. Hypokalemia continue potassium supplementation. Patient has rhabdomyolysis likely due to what I suspect was a significant down time with sedation from Ambien. Will check repeat transaminases. Check cmp and mg every 8 hours. The patient has suspected overdose of Ambien but could have also overdose another toxins given patient's LFTs are markedly elevated acetaminophen toxicity is possible.?The patient's current Tylenol level is negative.?Patient has been started on N-acetylcysteine for potential Tylenol toxicity. Trend LFTs. Pt completed N - acetylcysteine. I will consult GI for transaminitis likely drug induced. Aspiration pneumonia pt is on IV unasyn pt is able to eat and drink can transition to oral augmentin. follow BC. continue oxygen. Pt is on 4 liters currently . Subjective Date/time seen: 02/10/23 12:04 Interval history: 57-year-old female with a past medical history of obesity, anxiety postural orthostatic tachycardic syndrome status post pacemaker placement, chronic lower extremity edema and hypertension who presented to the ER from home after being found in bed with an almost empty bottle of Ambien. Pt presently in ICU for ambien overdose and aspiration pneumonia Pt sp N -acetylcysteine for potential Tylenol toxicity Continue current treatments, Poison control aware Continue to watch liver function and potassium levels Once pt is medically cleared crisis team to be consulted GI consulted for elevated LFTS which are likely secondary to drug OD Review of Systems Review of Systems: Pt more alert, still SOB no cough able to eat and drink well Exam Const: Other: Acutely ill-appearing, obese, appears much older than stated age Neck: Other: No JVD, no masses Resp: Other: Mild tachypnea, no accessory muscle use, anterior exam only performed, decreased breath sounds Cardio: Other: Regular rate, regular rhythm, 1+ bilateral radial pedal pulses, no murmurs GI: Other: Distended, tender in the epigastric region, possible hepatomegaly, normoactive bowel sounds : Other: Castro catheter in place with dark turbid baylee urine, patient had almost immediate return of 2 L of urine Back/Spine/Pelvis: Other: Patient has a bruise to the left back, palpation pelvis Normal stable Objective Data Vital Signs Vital Signs: Vital Signs - 24 hr 02/09/23 15:45 02/09/23 14:00 02/09/23 16:00 Temperature Pulse Rate 72 Respiratory Rate Blood Pressure Pulse Oximetry 93 Oxygen Delivery Nasal Cannula Nasal Cannula Oxygen Flow Rate 2 2 02/09/23 16:14 02/09/23 16:00 02/09/23 16:46 Temperature 37.1 C Pulse Rate 73 76 Respiratory Rate 18 15 Blood Pressure 132/76 Pulse Oximetry 91 94 Oxygen Delivery Nasal Cannula Nasal Cannula Oxygen Flow Rate 2 2 02/09/23 16:00 02/09/23 18:00 02/09/23 19:58 Temperature Pulse Rate 70 77 Respiratory Rate Blood Pressure Pulse Oximetry 94 Oxygen Delive
[2023-02-10 14:29] LABS: Albumin Level 3.1 g/dL (3.5-5.1); Alkaline Phosphatase 161 U/L (38-126); Anion Gap 5 mmol/L (8-16); Aspartate Amino Transferase 174 U/L (14-36); Blood Urea Nitrogen 13 mg/dL (7-17); Calcium 7.7 mg/dL (8.4-10.2); Carbon Dioxide 27 mmol/L (22-30); Chloride 104 mmol/L (98-107); Estimated CRCL calculation 68 ml/min; Estimated Glomerular Filt Rate > 60; Glucose 112 mg/dL (65-110); Magnesium 1.7 mg/dL (1.6-2.3); Potassium 3.7 mmol/L (3.4-5.0); Sodium 136 mmol/L (137-145)
[2023-02-10 15:30] LABS: Alanine Aminotransferase 863 U/L (6-35)
--- NOTE | 2023-02-10 16:43 | WPDGICN ---
Assessment and Plan Assessment and plan (1) Transaminitis: Code(s): R74.01 - Elevation of levels of liver transaminase levels Status: Acute Assessment and Plan: Patient with elevated serum transaminases. Most likely on the basis of drug toxicity. She does have apparent large congestion of Ambien. No specific other medications are described. Cannot exclude other medications however. Her blood pressures remained stable however given the large elevation of her serum transaminases hypotensive episode could have caused what is called shock liver . Plan to continue monitor LFTs conservatively. They have shown significant improvement sensor observation. The should be monitored until resolution intermittently. (2) Drug overdose: Qualifiers: Encounter type: initial encounter Injury intent: undetermined intent Qualified Code(s): T50.904A - Poisoning by unspecified drugs, medicaments and biological substances, undetermined, initial encounter Code(s): T50.901A - Poisoning by unspecified drugs, medicaments and biological substances, accidental (unintentional), initial encounter Status: Acute (3) Rhabdomyolysis: Qualifiers: Rhabdomyolysis type: non-traumatic Qualified Code(s): M62.82 - Rhabdomyolysis Code(s): M62.82 - Rhabdomyolysis Status: Acute Assessment and Plan: Rhabdomyolysis manifested by elevated creatinine kinase may also contribute to elevated liver function test potentially this contributes to the marked elevation of her LFTs. (4) Aspiration pneumonia: Code(s): J69.0 - Pneumonitis due to inhalation of food and vomit Status: Acute (5) Encephalopathy: Code(s): G93.40 - Encephalopathy, unspecified Status: Acute GI Consult Note Consult date/time: 02/10/23 16:43 Reason for consult: Elevated LFTs HPI: Lizette Quintero is a 57 year old female I am asked to see because of elevated liver function tests. Patient apparently in her usual state of health. Patient was found at home unresponsive with an almost empty bottle of Ambien. That she had an overdose. There was question of pneumonia on presentation. Patient has been maintained in the ICU since that time. Her LFTs have been noted to be markedly elevated with gradual decline subsequently. Patient denies any other drug ingestion. She was given N acetylcysteine for possible Tylenol toxicity. I have been consulted because of elevated liver tests. Patient was initially obtain ended upon presentation the hospital. She states she has been more were worry can't alert over the last 2-3 days. Hospital course reveals that she also has been treated for pneumonia possibly from aspiration as well as rhabdomyolysis. Page denies any prior history of liver disease. She has no known exposure to hepatitis. She has never been told she has cirrhosis or of her liver disease. Family history is noncontributory. Patient reports her mother had primary biliary cholangitis. Review of Systems Review of Systems: Review of systems noncontributory. [facility] Past Medical History Medical History Anxiety Essential hypertension Insomnia POTS (postural orthostatic tachycardia syndrome) Surgical History Surgical History History of total hysterectomy with bilateral salpingo-oophorectomy (BSO) Status post biventricular cardiac pacemaker insertion Family History Family History Other Unknown family medical history Social History Social History Social History: The patient lives with her . Her is not at bedside as he suffers from social anxiety disorder. The patient has a distant history of prescription opiate abuse over 20 years ago (before 1999). She is a lifelong nons
[2023-02-10] MEDS: POTASSIUM CHLORIDE 20 MEQ PACKET (FOR LIQUID) 40 MEQ PO (17:34)
[2023-02-10 18:40] LABS: Albumin Level 3.2 g/dL (3.5-5.1); Alkaline Phosphatase 159 U/L (38-126); Anion Gap 7 mmol/L (8-16); Aspartate Amino Transferase 151 U/L (14-36); Blood Urea Nitrogen 11 mg/dL (7-17); Calcium 7.9 mg/dL (8.4-10.2); Carbon Dioxide 25 mmol/L (22-30); Chloride 104 mmol/L (98-107); Estimated CRCL calculation 77 ml/min; Estimated Glomerular Filt Rate > 60; Glucose 110 mg/dL (65-110); Magnesium 1.6 mg/dL (1.6-2.3); Potassium 4.6 mmol/L (3.4-5.0); Sodium 136 mmol/L (137-145)
[2023-02-10] MEDS: HEPARIN SODIUM 5,000 UNITS/ML VIAL 5000 UNITS SUB-Q (20:15)
[2023-02-10 21:15] LABS: Alanine Aminotransferase 805 U/L (6-35)
--- NOTE | 2023-02-10 23:00 | PCDIET ---
Patient care taken over by Tavares WOODALL. RN received report from Liza WOODALL.
[2023-02-11] VITALS: BP 136/74; PULSE 74; RESP 16; TEMP 37.1; O2SAT 100
[2023-02-11] MEDS: KCL 20 MEQ/0.45% NS 1,000 ML 125 ML IV CONT ×3 (00:24→17:47)
[2023-02-11 04:38] LABS: Alanine Aminotransferase 605 U/L (6-35); Albumin Level 2.8 g/dL (3.5-5.1); Alkaline Phosphatase 144 U/L (38-126); Anion Gap 8 mmol/L (8-16); Aspartate Amino Transferase 104 U/L (14-36); Bilirubin,Total 0.9 mg/dL (0.2-1.3); Blood Urea Nitrogen 9 mg/dL (7-17); Calcium 7.7 mg/dL (8.4-10.2); Carbon Dioxide 21 mmol/L (22-30); Chloride 105 mmol/L (98-107); Creatine Kinase 113 U/L (30-135); Estimated CRCL calculation 77 ml/min; Estimated Glomerular Filt Rate > 60; Glucose 103 mg/dL (65-110); Magnesium 1.5 mg/dL (1.6-2.3); Potassium 3.8 mmol/L (3.4-5.0); Sodium 134 mmol/L (137-145)
[2023-02-11 08:00] VITALS: BP 156/90; PULSE 64; RESP 14; TEMP 36.9; O2SAT 92
[2023-02-11] MEDS: POTASSIUM CHLORIDE 20 MEQ PACKET (FOR LIQUID) 40 MEQ PO (08:25)
[2023-02-11] MEDS: polyethylene glycoL 3350 17 GM POWD.PACK PO (08:25)
[2023-02-11] MEDS: HEPARIN SODIUM 5,000 UNITS/ML VIAL 5000 UNITS SUB-Q ×2 (08:26→20:07)
[2023-02-11] MEDS: PANTOPRAZOLE SODIUM IV 40 MG VIAL IV PUSH (08:26)
[2023-02-11] MEDS: MAGNESIUM OXIDE 200 MG TABLET PO ×2 (08:26→20:07)
[2023-02-11] MEDS: DOCUSATE SODIUM LIQ 100 MG/10 ML UDC PO ×2 (08:26→20:07)
[2023-02-11] MEDS: AMOXICILLIN/CLAVULANATE K 875-125 MG TAB 1 TABLET PO ×2 (08:26→20:08)
--- NOTE | 2023-02-11 08:29 | WPDGIPROGNO ---
Progress Note: A&P Assessment and Plan (1) Transaminitis: Code(s): R74.01 - Elevation of levels of liver transaminase levels Status: Acute Assessment and Plan: LFTs have continued to improve. Still remains somewhat elevated. Likely related to drug overdose. Cannot exclude some component related to her rhabdomyolysis. Suggest following conservatively at this time till resolution. No specific therapy. (2) Drug overdose: Qualifiers: Encounter type: initial encounter Injury intent: undetermined intent Qualified Code(s): T50.904A - Poisoning by unspecified drugs, medicaments and biological substances, undetermined, initial encounter Code(s): T50.901A - Poisoning by unspecified drugs, medicaments and biological substances, accidental (unintentional), initial encounter Status: Acute Assessment and Plan: Patient after overdose of medication. This may account for her elevated LFTs. Continue monitor conservatively. Watch for signs of intentional harm to herself. (3) Rhabdomyolysis: Qualifiers: Rhabdomyolysis type: non-traumatic Qualified Code(s): M62.82 - Rhabdomyolysis Code(s): M62.82 - Rhabdomyolysis Status: Acute Assessment and Plan: Rhabdomyolysis may have contributed to her elevated LFTs. She appears to be improving. Continue with hydration. Monitor renal function. (4) Aspiration pneumonia: Code(s): J69.0 - Pneumonitis due to inhalation of food and vomit Status: Acute (5) Encephalopathy: Code(s): G93.40 - Encephalopathy, unspecified Status: Acute Assessment and Plan: Encephalopathy appears resolved at this point. Subjective Date/time seen: 02/11/23 08:29 Interval history: Patient alert comfortable this morning. Denies abdominal pain. Complains of constipation. Review of Systems Review of Systems: Review of systems noncontributory. Exam Narrative: Physical exam reveals patient be alert comfortable. HEENT exam reveals no significant icterus. Lungs are clear. Heart without murmurs. Abdomen is soft flat bowel sounds are present nontender no organomegaly. No tenderness over the liver. Objective Data Vital Signs Vital Signs: Vital Signs - 24 hr 02/10/23 09:54 02/10/23 10:17 02/10/23 16:00 Temperature Pulse Rate 81 75 72 Respiratory Rate 20 21 H Blood Pressure 150/78 H Pulse Oximetry 96 98 Oxygen Delivery Nasal Cannula Oxygen Flow Rate 4 02/10/23 20:00 02/10/23 19:55 02/11/23 00:00 Temperature 98.8 F Pulse Rate 74 Respiratory Rate 16 Blood Pressure 136/74 Pulse Oximetry 94 100 Oxygen Delivery Room Air Nasal Cannula Oxygen Flow Rate 2 02/11/23 08:00 Temperature Pulse Rate Respiratory Rate Blood Pressure Pulse Oximetry Oxygen Delivery Room Air Oxygen Flow Rate Intake/Output Intake/Output: Intake & Output 02/08/23 02/09/23 02/10/23 02/11/23 23:59 23:59 23:59 23:59 Intake Total 6533.0 4205 4990 120 Output Total 4900 3250 Balance 1633.0 955 4990 120 Meds/Results Medications: Active Medications Generic Name Dose Route Start Last Admin Trade Name Freq PRN Reason Stop Dose Admin Amoxicillin/Clavulanate Potassium 1 tablet 02/10/23 11:00 02/11/23 08:26 Amoxicillin/Clavulanate K 875-125 Mg Tab PO 02/13/23 23:59 1 tablet Q12HR MARELY Administration Bisacodyl 10 mg 02/08/23 08:53 Bisacodyl 10 Mg Suppository RECTAL QAM PRN Constipation Docusate Sodium 100 mg 02/10/23 21:00 02/11/23 08:26 Docusate Sodium Liq 100 Mg/10 Ml Udc PO 100 mg Q12HR MARELY Administration Heparin Sodium (Porcine) 5,000 units 02/08/23 09:00 02/11/23 08:26 Heparin Sodium 5,000 Units/Ml Vial SUB-Q 5,000 units Q12HR MARELY Administration Potassium Chloride/Sodium Chloride 1,000 mls @ 125 mls/hr 02/08/23 09:00 02/11/23 00:24 Kcl 20 Meq/0.45% Ns IV CONT 125 mls/hr .Q8H MARELY Administration
--- NOTE | 2023-02-11 09:59 | PM.IMPN ---
Progress Note: A&P Assessment and Plan (1) Aspiration pneumonia: Code(s): J69.0 - Pneumonitis due to inhalation of food and vomit Status: Acute (2) Encephalopathy: Code(s): G93.40 - Encephalopathy, unspecified Status: Acute (3) Urinary retention: Code(s): R33.9 - Retention of urine, unspecified Status: Acute (4) High anion gap metabolic acidosis: Code(s): E87.29 - Other acidosis Status: Acute (5) Hypokalemia: Code(s): E87.6 - Hypokalemia Status: Acute (6) Acute kidney injury: Code(s): N17.9 - Acute kidney failure, unspecified Status: Acute (7) Transaminitis: Code(s): R74.01 - Elevation of levels of liver transaminase levels Status: Acute Plan Poison Control was contacted.?Altered mental status likely due to combination of both toxic and metabolic encephalopathy. Patient remains on aggressive IV fluid hydration due to post sepsis and rhabdomyolysis. Hypokalemia continue potassium supplementation. Patient has rhabdomyolysis likely due to what I suspect was a significant down time with sedation from Ambien. Will check repeat transaminases. Check cmp and mg every 8 hours. The patient has suspected overdose of Ambien but could have also overdose another toxins given patient's LFTs are markedly elevated acetaminophen toxicity is possible.?The patient's current Tylenol level is negative.?Patient has been started on N-acetylcysteine for potential Tylenol toxicity. Trend LFTs. Pt completed N - acetylcysteine. I will consult GI for transaminitis likely drug induced. Aspiration pneumonia pt is on IV unasyn pt is able to eat and drink can transition to oral augmentin. follow BC. continue oxygen. Pt is on room air Constipation resolved wih laxatives Seen by GI continue present care and continue to hydrate Subjective Date/time seen: 02/11/23 09:59 Interval history: 57-year-old female with a past medical history of obesity, anxiety postural orthostatic tachycardic syndrome status post pacemaker placement, chronic lower extremity edema and hypertension who presented to the ER from home after being found in bed with an almost empty bottle of Ambien. Pt presently in ICU for ambien overdose and aspiration pneumonia Pt sp N -acetylcysteine for potential Tylenol toxicity Continue current treatments, Poison control aware Continue to watch liver function and potassium levels Once pt is medically cleared crisis team to be consulted GI consulted for elevated LFTS which are likely secondary to drug OD Pt having bowel movements today feels better Review of Systems Review of Systems: Having bowel movements today no other specific complaints Exam Const: Other: Acutely ill-appearing, obese, appears much older than stated age Neck: Other: No JVD, no masses Resp: Other: Mild tachypnea, no accessory muscle use, anterior exam only performed, decreased breath sounds Cardio: Other: Regular rate, regular rhythm, 1+ bilateral radial pedal pulses, no murmurs GI: Other: Distended, tender in the epigastric region, possible hepatomegaly, normoactive bowel sounds : Other: Castro catheter in place with dark turbid baylee urine, patient had almost immediate return of 2 L of urine Back/Spine/Pelvis: Other: Patient has a bruise to the left back, palpation pelvis Normal stable Objective Data Vital Signs Vital Signs: Vital Signs - 24 hr 02/10/23 10:17 02/10/23 16:00 02/10/23 20:00 Temperature Pulse Rate 75 72 Respiratory Rate 20 21 H Blood Pressure 150/78 H Pulse Oximetry 96 98 Oxygen Delivery Nasal Cannula Room Air Oxygen Flow Rate 4 02/10/23 19:55 02/11/23 00:00 02/11/23 08:00 Temperature 37.1 C Pulse Rate 74 Respiratory Rate 16 Blood Pressure 136/74 Pulse Oximetry 94 100 Oxygen Delivery Nasal Cannula Room Air Oxygen Flow Rate 2 02/11/23 08:00 Temp
[2023-02-11] MEDS: GLYCERIN ADULT 1 SUPP.RECT RECTAL (12:18)
[2023-02-11 16:09] LABS: Hematocrit 41.1 % (37.0-47.0); Hemoglobin 14.1 g/dL (12.0-15.0); Mean Corpuscular HGB Conc 34.3 g/dl (32-36); Mean Corpuscular Hemoglobin 32.5 pg (26-34); Mean Corpuscular Volume 94.7 fl (80-100); Mean Platelet Volume 11.6 fl (7.4-10.4); Platelet Count Result 206 k/mm3 (150-375); Red Blood Count 4.34 M/mm3 (4.2-5.4); Red Cell Distribution Width 16.4 % (11.5-14.5); White Blood Count 10.6 K/mm3 (4.5-10.0)
[2023-02-11 17:49] VITALS: BP 164/89; PULSE 76; RESP 18; TEMP 36.3; O2SAT 96
[2023-02-12] VITALS: BP 158/76; PULSE 82; RESP 24; TEMP 36.6; O2SAT 94
[2023-02-12] MEDS: KCL 20 MEQ/0.45% NS 1,000 ML 125 ML IV CONT ×2 (02:43→11:46)
[2023-02-12 04:41] LABS: Alanine Aminotransferase 437 U/L (6-35); Albumin Level 3.1 g/dL (3.5-5.1); Alkaline Phosphatase 136 U/L (38-126); Anion Gap 7 mmol/L (8-16); Aspartate Amino Transferase 72 U/L (14-36); Bilirubin,Total 0.9 mg/dL (0.2-1.3); Blood Urea Nitrogen 4 mg/dL (7-17); Calcium 7.8 mg/dL (8.4-10.2); Carbon Dioxide 19 mmol/L (22-30); Chloride 108 mmol/L (98-107); Estimated CRCL calculation 77 ml/min; Estimated Glomerular Filt Rate > 60; Glucose 116 mg/dL (65-110); Magnesium 1.4 mg/dL (1.6-2.3); Potassium 4.6 mmol/L (3.4-5.0); Sodium 134 mmol/L (137-145)
[2023-02-12 05:17] LABS: Creatine Kinase 87 U/L (30-135)
[2023-02-12 05:31] LABS: Hematocrit 36.1 % (37.0-47.0); Hemoglobin 11.7 g/dL (12.0-15.0); Mean Corpuscular HGB Conc 32.4 g/dl (32-36); Mean Corpuscular Hemoglobin 30.7 pg (26-34); Mean Corpuscular Volume 94.8 fl (80-100); Mean Platelet Volume 11.4 fl (7.4-10.4); Platelet Count Result 209 k/mm3 (150-375); Red Blood Count 3.81 M/mm3 (4.2-5.4); Red Cell Distribution Width 14.7 % (11.5-14.5)
[2023-02-12 08:00] VITALS: BP 135/68; PULSE 120; RESP 18; TEMP 36.3; O2SAT 97
[2023-02-12] MEDS: HEPARIN SODIUM 5,000 UNITS/ML VIAL 5000 UNITS SUB-Q (08:24)
[2023-02-12] MEDS: PANTOPRAZOLE SODIUM IV 40 MG VIAL IV PUSH (08:24)
[2023-02-12] MEDS: MAGNESIUM OXIDE 200 MG TABLET PO (08:25)
[2023-02-12] MEDS: AMOXICILLIN/CLAVULANATE K 875-125 MG TAB 1 TABLET PO (08:25)
--- NOTE | 2023-02-12 09:47 | WPDGIPROGNO ---
Progress Note: A&P Assessment and Plan (1) Transaminitis: Code(s): R74.01 - Elevation of levels of liver transaminase levels Status: Acute Assessment and Plan: Patient's serum transaminases continue to improve. Likely this is related to her drug overdose. Cannot exclude that rhabdomyolysis contributed to this. Would recommend that LFTs be followed up electively as an outpatient. If they remain elevated more than a month after discharge she can follow up in our office electively. Discharge disposition left to the discretion of primary care service. (2) Drug overdose: Qualifiers: Encounter type: initial encounter Injury intent: undetermined intent Qualified Code(s): T50.904A - Poisoning by unspecified drugs, medicaments and biological substances, undetermined, initial encounter Code(s): T50.901A - Poisoning by unspecified drugs, medicaments and biological substances, accidental (unintentional), initial encounter Status: Acute Assessment and Plan: Patient appeared OD on Ambien. Suggest psych follow-up to ensure she would is not a risk of harm to herself. (3) Aspiration pneumonia: Code(s): J69.0 - Pneumonitis due to inhalation of food and vomit Status: Acute (4) Rhabdomyolysis: Qualifiers: Rhabdomyolysis type: non-traumatic Qualified Code(s): M62.82 - Rhabdomyolysis Code(s): M62.82 - Rhabdomyolysis Status: Acute Assessment and Plan: Rhabdomyolysis appears to have improved clinically. Likely this contributed elevated LFTs in some degree. Subjective Date/time seen: 02/12/23 09:47 Interval history: Patient alert comfortable. She is anxious to go home. Tolerating diet. She denies abdominal pain. Her bowel habits have been described as normal. Review of Systems Review of Systems: Review of systems is noncontributory. Exam Narrative: Physical exam reveals patient be alert. Vital signs stable. HEENT exam is unremarkable. Patient is anicteric. Lungs are clear. Heart without murmur. Abdomen bowel sounds present soft nontender with no organomegaly. No abdominal tenderness. Objective Data Vital Signs Vital Signs: Vital Signs - 24 hr 02/11/23 17:49 02/11/23 20:00 02/12/23 00:00 Temperature 97.4 F L 97.9 F Pulse Rate 76 82 Respiratory Rate 18 24 H Blood Pressure 164/89 H 158/76 H Pulse Oximetry 96 94 Oxygen Delivery Room Air 12/03/23 08:00 Temperature Pulse Rate Respiratory Rate Blood Pressure Pulse Oximetry Oxygen Delivery Room Air Intake/Output Intake/Output: Intake & Output 02/09/23 02/10/23 02/11/23 02/12/23 23:59 23:59 23:59 23:59 Intake Total 4205 4990 2480 1240 Output Total 3250 Balance 955 4990 2480 1240 Meds/Results Medications: Active Medications Generic Name Dose Route Start Last Admin Trade Name Freq PRN Reason Stop Dose Admin Amoxicillin/Clavulanate Potassium 1 tablet 02/10/23 11:00 02/12/23 08:25 Amoxicillin/Clavulanate K 875-125 Mg Tab PO 02/13/23 23:59 1 tablet Q12HR MARELY Administration Docusate Sodium 100 mg 02/10/23 21:00 02/12/23 08:23 Docusate Sodium Liq 100 Mg/10 Ml Udc PO Not Given Q12HR MARELY Glycerin 1 supp 02/11/23 09:34 02/11/23 12:18 Glycerin Adult 1 Supp.Rect RECTAL 1 supp QAM PRN Administration Constipation Heparin Sodium (Porcine) 5,000 units 02/08/23 09:00 02/12/23 08:24 Heparin Sodium 5,000 Units/Ml Vial SUB-Q 5,000 units Q12HR MARELY Administration Potassium Chloride/Sodium Chloride 1,000 mls @ 125 mls/hr 02/08/23 09:00 02/12/23 02:43 Kcl 20 Meq/0.45% Ns IV CONT 125 mls/hr .Q8H MARELY Administration Magnesium Oxide 200 mg 02/09/23 21:00 02/12/23 08:25 Magnesium Oxide 200 Mg Tablet PO 200 mg Q12HR MARELY Administration Ondansetron HCl 4 mg 02/07/23 21:46 Ondansetron Inj 4 Mg/2 Ml Vial IV PUSH Q4H PRN Nausea Pantoprazole Sodium 40 mg 01/12
[2023-02-12] MEDS: POTASSIUM CHLORIDE 20 MEQ ER TABLET 40 MEQ PO (09:53)
--- NOTE | 2023-02-12 12:39 | PM.DS ---
DS: Admitting Diagnosis Discharge Date 02/12/2023: Admitting Diagnosis Accidental drug overdose Altered mental status DS: Discharge Diagnosis Discharge Diagnosis (1) Encephalopathy: Code(s): G93.40 - Encephalopathy, unspecified Status: Acute (2) Urinary retention: Code(s): R33.9 - Retention of urine, unspecified Status: Acute (3) High anion gap metabolic acidosis: Code(s): E87.29 - Other acidosis Status: Acute (4) Hypokalemia: Code(s): E87.6 - Hypokalemia Status: Acute (5) Acute kidney injury: Code(s): N17.9 - Acute kidney failure, unspecified Status: Acute (6) Transaminitis: Code(s): R74.01 - Elevation of levels of liver transaminase levels Status: Acute (7) Essential hypertension: Code(s): I10 - Essential (primary) hypertension Status: Acute (8) Anxiety: Code(s): F41.9 - Anxiety disorder, unspecified Status: Acute (9) Drug overdose: Qualifiers: Encounter type: initial encounter Injury intent: undetermined intent Qualified Code(s): T50.904A - Poisoning by unspecified drugs, medicaments and biological substances, undetermined, initial encounter Code(s): T50.901A - Poisoning by unspecified drugs, medicaments and biological substances, accidental (unintentional), initial encounter Status: Acute (10) Rhabdomyolysis: Qualifiers: Rhabdomyolysis type: non-traumatic Qualified Code(s): M62.82 - Rhabdomyolysis Code(s): M62.82 - Rhabdomyolysis Status: Acute DS: Summary Hospital Course Reason for hospitalization: Accidental drug overdose with Ambien Hospital Course: H&P: HPI History of Present Illness Date/Time: 02/07/23? 20:44 Chief Complaint: Suspected overdose Narrative: 57-year-old female with a past medical history of obesity, anxiety postural orthostatic tachycardic syndrome status post pacemaker placement, chronic lower extremity edema and hypertension who presented to the ER from home after being found in bed with an almost empty bottle of Ambien.? Information was obtained from the patient's son was at bedside, the patient's [id number] over the phone and the patient's over the phone.? The patient has definite last known normal was on the evening of the .? The patient's son is uncertain if the patient had actually got up and was up or talking to her through the day.? But he reports that the patient has been having significant difficulty with insomnia and anxiety.? Patient was started on Ambien in December.? The patient had taken a couple doses of Ambien and had noticed that she was doing sleep behaviors such as sleep eating and walking.? The patient had verbalized to the [id number] that she was concerned that if she took the Ambien that she to sleep she may inadvertently into taking extra doses because she did not realize that she had taken the previous dose.? Patient had never verbalized intention to hurt herself to the family members.? And today the patient was found in her bed at home with a bottle of Ambien.? She was found with emesis around her mouth and she had been incontinent of bladder.? The patient was responsive only to painful stimuli.? She had a prescription of Ambien 5 mg filled on the .? There were only 3 tablets left in the bottle.? It sounds like the patient was not taking the Ambien on every day basis because of her concern for her unintentional sleep behaviors.? It is uncertain how many pills of Ambien the patient may taken.? Patient will open her eyes to noxious stimuli.? She does moan and moves about but does not localize the pain.? She occasionally will open her eyes to her name.? The patient had vomited in the field it was assumed that this was due to the drug ingestion.? But on exam patient seemed to have some abdominal tenderness.? Subsequently patient was sent for stat CT of the abdomen and pelvis.? CT demonstrated right lo
[2023-02-12] MEDS: MAGNESIUM SULF 2 GM/WATER 50ML 2 GM/50 ML BAG IVPB (13:23)
== END 2023-02-12 15:44 | disposition home or self-care (01) | DRG 917 ==
LOC: ANHED 22:08 → ANHICU 22:42
PROVIDERS: Family Medicine; Internal Medicine; Admitting Provider Internal Medicine; Emergency Provider Emergency Medicine; PCP Family Medicine; Visit Provider Family Medicine
DX: T42.71XA Poisoning by unspecified antiepileptic and sedative-hypnotic drugs, accidental (unintentional), initial encounter (principal); A41.9 Sepsis, unspecified organism; J69.0 Pneumonitis due to inhalation of food and vomit; R65.20 Severe sepsis without septic shock; G92.8 Other toxic encephalopathy; N13.30 Unspecified hydronephrosis; M62.82 Rhabdomyolysis; N17.9 Acute kidney failure, unspecified; E87.20 Acidosis, unspecified; E87.1 Hypo-osmolality and hyponatremia; T42.6X5A Adverse effect of other antiepileptic and sedative-hypnotic drugs, initial encounter; T83.098A Other mechanical complication of other urinary catheter, initial encounter; N32.89 Other specified disorders of bladder; G47.00 Insomnia, unspecified; E87.6 Hypokalemia; E66.9 Obesity, unspecified; F41.9 Anxiety disorder, unspecified; G90.A Postural orthostatic tachycardia syndrome [POTS]; I10 Essential (primary) hypertension; R74.01 Elevation of levels of liver transaminase levels; R60.0 Localized edema; R33.9 Retention of urine, unspecified; Z95.0 Presence of cardiac pacemaker; Z90.710 Acquired absence of both cervix and uterus; Z20.822 Contact with and (suspected) exposure to COVID-19
CPT/HCPCS: 36415; 36600; 70450; 71045; 74176; 76705; 80053; 80074; 80076; 80307; 81001; 82140; 82550; 82805; 83605; 83735; 83930; 84100; 84443; 85025; 85027; 85610; 85730; 87040; 87637; 93005; 96361; 96365; 96375; 97161; 97165; 99285; A9270; C9113; G0378; J0132; J0295; J1644; J2405; J3475; J3480; J7030; J7040; J7060; J7070